=== PATIENT | female | born 2000 | race Caucasian/White ===

== ENCOUNTER 2022-03-15 11:25 | Emergency (ER) | payer MEDICAID ==
[~2022-03-15] VITALS: Ht 165.1 cm; Wt 111.1 kg
[2022-03-15] MEDS ORDERED: ALL DAY ALLERGY10 M3 PO (12:02)
[2022-03-15] MEDS ORDERED: FLONASE ALLERG9.9 ML NAS (12:02)
[2022-03-15] MEDS ORDERED: ONDANSETRON ODT4 MG PO (17:27)
[2022-03-15] MEDS ORDERED: BACTRIM DS TAB1 EACH PO (17:27)
== END 2022-03-15 17:49 | disposition home or self-care (01) ==
LOC: ED 11:25
DX: N39.0 Urinary tract infection, site not specified (principal); Z79.899 Other long term (current) drug therapy
CPT/HCPCS: 74177; 76830; 76856; 80053; 81001; 83690; 84702; 85025; 87210; 96361; 99284-25; A9270; J2405; J7030; Q9967